=== PATIENT | female | born 1970 | race Caucasian/White ===

== ENCOUNTER 2017-12-10 20:58 | Emergency (ER) | payer OTHER ==
[2017-12-10] MEDS ORDERED: NS 0.9% 1000 ML* 1,000 ML IV ONE (21:40)
[2017-12-10] MEDS ORDERED: Metoclopramide IV* 5 MG/ML 2 ML VIAL IV SLOW PU ONE (21:41)
[2017-12-10 22:54] LABS: ABS Basophils 0 10^3/ul (0-0.2); ABS Eosinophils 0.1 10^3/ul (0-0.6); ABS Lymphocytes 2.2 10^3/ul (1.0-4.8); ABS Monocytes 0.5 10^3/ul (0-0.8); ABS Neutrophils 5.6 10^3/ul (1.5-7.7); ABS Nucleated RBC 0 10^3/ul; Eosinophil % 1.6 % (0-6); Hematocrit 41 % (35-47); Hemoglobin 14.1 g/dl (12.0-16.0); Lymphocyte % 26.2 % (25-47); Mean Corpuscular HGB Conc 34 g/dl (31-36); Mean Corpuscular Hemoglobin 30 pg (27-31); Mean Corpuscular Volume 87 fL (80-97); Mean Platelet Volume 7 um3 (7.4-10.4); Nucleated Red Blood Cells % 0; Platelet Count 418 10^3/ul (150-450); Red Blood Count 4.72 10^6/ul (4.0-5.4); Red Cell Distribution Width 13 % (10.5-15); White Blood Count 8.4 10^3/ul (3.5-10.8)
[2017-12-10 23:03] LABS: Urine Appearance Clear; Urine Blood Negative (Negative); Urine Color Yellow; Urine Ketones Negative (Negative); Urine Protein Negative (Negative); Urine Urobilinogen Negative (Negative)
[2017-12-10 23:07] LABS: INR 0.93 (0.77-1.02)
[2017-12-10 23:24] LABS: EGFR Non-African American 36.3 (>60)
[2017-12-11 00:12] VITALS: BP 108/82
[2017-12-11] MEDS ORDERED: Ketorolac INJ* 30 MG/ML 1 ML VIAL IV PUSH ONE (00:14)
--- NOTE | 2017-12-11 01:06 | ED ---
Kofi Montana Julia, scribed for Damon Marina MD on 12/10/17 at 2142 . Abdominal Pain/Female - HPI Summary HPI Summary: This patient is a 47 year old F presenting to [facility] with a chief complaint of decreased appetite right sided abdominal pain radiating up her back for the past month worsening today. The patient rates the pain 8/10 in severity. Symptoms aggravated by palpation. Patient reports jerking and twitching, weakness, and slurred speech for the past week. Patient denies vomiting. Symptoms unchanged by Tylenol use. She states she has been buying Suboxone for pain relief since she was previously prescribed Suboxone and does not currently have a primary care physician. Patient has history of IV drug use while in her early twenties. Medication list reviewed this visit. - History of Current Complaint Chief Complaint: EDAbdPain Stated Complaint: BACK PAIN Time Seen by Provider: 12/10/17 21:22 Hx Obtained From: Patient Onset/Duration: Lasting Weeks, Still Present, Worse Since - today Timing: Constant Pain Intensity: 8 Pain Scale Used: 0-10 Numeric Location: Other - right sided Radiates: Yes Radiates to: Back Alleviating Factor(s): Other: - Suboxone Associated Signs and Symptoms: Positive: Decreased Appetite, Other: - jerking and twitching, weakness, and slurred speech Allergies/Adverse Reactions: Allergies Allergy/AdvReac Type Severity Reaction Status Date / Time No Known Allergies Allergy Verified 12/10/17 21:04 PMH/Surg Hx/FS Hx/Imm Hx Cardiovascular History: Reports: Hx Hypertension EENT History: Denies: Hx Deafness Psychiatric History: Reports: Hx Depression, Hx Substance Abuse Infectious Disease History: No Infectious Disease History: Denies: Traveled Outside the [place] in Last 30 Days - Social History Hx Substance Use: Yes - 20 years ago Substance Use Type: Reports: Heroin Review of Systems Gastrointestinal: Other - decreased appetite Positive: Abdominal Pain. Negative: Vomiting Positive: Myalgia - back pain Neurological: Other - twitching Positive: Weakness, Slurred Speech All Other Systems Reviewed And Are Negative: Yes Physical Exam - Summary Physical Exam Summary: VITAL SIGNS: Reviewed. GENERAL: Patient is a well-developed and nourished female who is lying comfortable in the stretcher. Patient is not in any acute respiratory distress. HEAD AND FACE: No signs of trauma. No ecchymosis, hematomas or skull depressions. No sinus tenderness. EYES: PERRLA, EOMI x 2, No injected conjunctiva, no nystagmus. EARS: Hearing grossly intact. Ear canals and tympanic membranes are within normal limits. MOUTH: Oropharynx within normal limits. NECK: Supple, trachea is midline, no adenopathy, no JVD, no carotid bruit, no c- spine tenderness, neck with full ROM. CHEST: Symmetric, no tenderness at palpation LUNGS: Clear to auscultation bilaterally. No wheezing or crackles. CVS: Regular rate and rhythm, S1 and S2 present, no murmurs or gallops appreciated. ABDOMEN: Soft, with RUQ tenderness. No signs of distention. No rebound no guarding, and no masses palpated. Bowel sounds are normal. EXTREMITIES: FROM in all major joints, no edema, no cyanosis or clubbing. NEURO: Alert and oriented x 3. No acute neurological deficits. Speech is normal and follows commands. SKIN: Dry and warm Breast exam: left slightly larger than right with no signs of inflammation, no masses detected Triage Information Reviewed: Yes Vital Signs On Initial Exam: Initial Vitals Temp Pulse Resp BP Pulse Ox 98.3 F 71 18 96/59 99 12/10/17 21:00 12/10/17 21:00 12/10/17 21:00 12/10/17 21:00 12/10/17 21:00 Vital Signs Reviewed: Yes Diagnostics - Vital Signs Vital Signs Temp Pulse Resp BP Pulse Ox 12/10/17 21:00 98.3 F 71 18 96/59 99 - Laboratory Result Diagrams: 12/10/17 22:37 12/10/17 22:37 Lab Statement: Any lab studies that have been ordered have been reviewed, and results considered in the medical decision making process. - CT Gallbladder US CT Interpretation Completed By: Radiologist - No sonographic evidence for cholelithiasis or acute cholecystitis. No evidence of bilary obstruction Brain CT CT Interpretation Completed By: Radiologist - The brain parenchyma demonstrates normal attenuation without focal mass or mass effect. The ventricles are not enlarged. No acute intracranial hemorrhage or acute infarction. The visualized aspect of the paranasal sinuses and mastoid air cells are unremarkable. No acute fracture. ED Physician has reviewed this report. Abdominal Pain Fem Course/Dx - Course Course Of Treatment: Patient presents with ecreased appetite right sided abdominal pain radiating up her back for the past month worsening today. Patient reports jerking and twitching, weakness, and slurred speech for the past week. Lab results are unremarkable. A Brain CT is ov no acute concern. A gallbladder US is of no acute concern. Patient is given Reglan, Toradol, and IV fluids. Lab results were discussed with patient. Breast exam is of no acute concern, but patient is instructed to get a mammogram as soon as possible. - Diagnoses Provider Diagnoses: Abdominal pain Discharge - Discharge Plan Condition: Stable Disposition: HOME Prescriptions: Ibuprofen TAB* [Motrin TAB* 600 MG] 600 mg PO Q6H PRN #30 tab PRN Reason: Pain Patient Education Materials: Acute Abdominal Pain (ED) Referrals: Anselmo Cano MD [Medical Doctor] - As Soon As Possible Additional Instructions: Follow up with Dr. Cano as your primary care physician. Please get a mammogram as soon as possible. RETURN TO THE EMERGENCY DEPARTMENT FOR CHANGING OR WORSENING SYMPTOMS. The documentation as recorded by the Kofi camarillo Julia accurately reflects the service I personally performed and the decisions made by , Damon Marina MD.
--- NOTE | 2017-12-11 07:43 | RAD ---
HISTORY: Right upper quadrant to right shoulder pain COMPARISONS: None TECHNIQUE: Multiple transverse and longitudinal ultrasound images were obtained of the right upper quadrant of the abdomen using grayscale, color Doppler, and spectral Doppler imaging. FINDINGS: LIVER: The liver is normal in shape, size, contour, and echogenicity. There are no focal parenchymal masses. There is normal hepatopedal flow of the portal vein on Doppler imaging. BILIARY TREE: There is no intrahepatic or extrahepatic biliary dilatation. The common duct measures 0.4 cm. GALLBLADDER: The gallbladder is well-visualized. There is no cholelithiasis, gallbladder wall thickening, pericholecystic fluid, or sonographic Felix sign. PANCREAS: The head of the pancreas is unremarkable. The tail of the pancreas is not well visualized secondary to overlying bowel gas. RIGHT KIDNEY: The right kidney is normal in shape, size, contour, and echogenicity. There is no hydronephrosis or nephrolithiasis. The right kidney measures 9.8 x 3.9 x 4.2 cm. AORTA AND IVC: The aorta and IVC are unremarkable. Normal arterial and venous waveforms are identifiable on spectral Doppler imaging. FLUID: There are no pleural effusions. There is no free fluid within the hepatorenal recess. OTHER FINDINGS: None. IMPRESSION: NO ACUTE SONOGRAPHIC PATHOLOGY OF THE VISUALIZED PORTION OF THE ABDOMEN.
--- NOTE | 2017-12-11 07:48 | RAD ---
HISTORY: Twitching, weakness COMPARISONS: None TECHNIQUE: Multiple contiguous axial CT scans were obtained of the head without intravenous contrast. FINDINGS: HEMORRHAGE/INFARCT: There is no hemorrhage or acute infarct. MASSES/SHIFT: There is no mass or shift. EXTRA-AXIAL SPACES: There are no extra-axial fluid collections. SULCI AND VENTRICLES: The sulci and ventricles are normal in size and position for the patient's stated age. CEREBRUM: There are no focal parenchymal abnormalities. BRAINSTEM: There are no focal parenchymal abnormalities. CEREBELLUM: There are no focal parenchymal abnormalities. VESSELS: The vessels are grossly normal. PARANASAL SINUSES: The paranasal sinuses are clear. ORBITS: The orbits are unremarkable. BONES AND SOFT TISSUE: No bone or soft tissue abnormalities are noted. OTHER: None IMPRESSION: NO ACUTE INTRACRANIAL PATHOLOGY.
== END 2017-12-11 01:31 | disposition home or self-care (01) ==
LOC: ED 20:58
DX: R10.9 Unspecified abdominal pain (principal); R53.1 Weakness; R47.81 Slurred speech; Z32.02 Encounter for pregnancy test, result negative
CPT/HCPCS: 36415; 70450; 76705; 80053; 81003; 81015; 82150; 83690; 83735; 84702; 85025; 85610; 85730; 86140; 87086; 99282; J1885; J2765

== ENCOUNTER 2018-02-23 16:58 | Emergency (ER) | payer OTHER ==
[2018-02-23 19:03] LABS: Urine Appearance Clear; Urine Blood Negative (Negative); Urine Color Yellow; Urine Ketones Negative (Negative); Urine Protein Negative (Negative); Urine Specific Gravity 1.006 (1.010-1.030); Urine Urobilinogen Negative (Negative)
--- NOTE | 2018-02-23 19:09 | RAD ---
Indication: Seizure activity. Altered mental status. Hypertension. Comparison: No relevant prior exams available on the [facility] PACS for comparison. Technique: Upright AP 1838 hours Report: Elevated lung volumes. Patchy rarefaction of upper lung zone interstitial markings. No focal pulmonary lesion, compelling alveolar consolidation, pleural effusion, pneumothorax. Upper normal heart size. Unremarkable central pulmonary vasculature and mediastinal contours. IMPRESSION: Stigmata of obstructive lung disease. No acute pulmonary or cardiac process evident.
[2018-02-23] MEDS ORDERED: cloNIDine TAB* 0.1 MG ONE (19:24)
[2018-02-23] MEDS ORDERED: diPHENhydraMINE PO* 25 MG ONE (19:24)
[2018-02-23] MEDS ORDERED: diPHENhydraMINE PO* 25 MG PO ONE (19:27)
[2018-02-23] MEDS ORDERED: cloNIDine TAB* 0.1 MG PO ONE (19:27)
[2018-02-23 20:39] VITALS: BP 145/88
--- NOTE | 2018-02-23 21:07 | ED ---
Vinny Montana Rebecca, scribed for Luke Raygoza MD on 02/23/18 at 1813 . Neurological HPI - HPI Summary HPI Summary: Pt is a 48 y/o F BIBA who presents to ED s/p suspected seizure. Per nurse's triage, the pt was found outside of a library with twitching that appeared to be a seizure. The pt reports that she is unsure of exactly how long it lasted, though she expects it to have been 5-10 minutes. Last seizure was multiple years ago. States that "maybe I took a couple extra gabapentins because I thought it would help relaxing because I have been a nervous mess." Additionally notes that she has been experiencing intermittent twitching for the past 6 months, though she states they began in March. Denies CP, SOB. PMHx seizures - takes Gabapentin and Baclofen. Does not have a neurologist, has been following up with her PCP, Dr. Burgos. - History of Current Complaint Chief Complaint: EDAltMentalStatus Stated Complaint: ALT. MENTAL STATE Time Seen by Provider: 02/23/18 18:00 Hx Obtained From: Patient Onset/Duration: Resolved Current Severity: None Number of Seizures: 1 Pain Intensity: 0 Pain Scale Used: 0-10 Numeric Aggravating: Nothing Alleviating: Spontanious Resolution Associated Signs and Symptoms: Negative: Chest Pain, Shortness of Breath Related Hx: Seizure - Allergy/Home Medications Allergies/Adverse Reactions: Allergies Allergy/AdvReac Type Severity Reaction Status Date / Time No Known Allergies Allergy Verified 12/10/17 21:04 PMH/Surg Hx/FS Hx/Imm Hx Cardiovascular History: Reports: Hx Hypertension Sensory History: Denies: Hx Deafness Neurological History: Reports: Hx Seizures Psychiatric History: Reports: Hx Depression, Hx Substance Abuse Infectious Disease History: Unable to Obtain/Confirm Infectious Disease History: Denies: Traveled Outside the [place] in Last 30 Days - Family History Known Family History: Positive: Hypertension - Social History Alcohol Use: Occasionally Hx Substance Use: Yes - 20 years ago Substance Use Type: Reports: Heroin Substance Use Comment - Amount & Last Used: unk Smoking Status (MU): Heavy Every Day Tobacco Smoker Review of Systems Negative: Chest Pain Negative: Shortness Of Breath Neurological: Other - s/p susepcted seizure, "twitching" All Other Systems Reviewed And Are Negative: Yes Physical Exam - Summary Physical Exam Summary: VITAL SIGNS: Reviewed. GENERAL: ~Patient is a well-developed and nourished female who is lying comfortable in the stretcher. ~Patient is not in any acute respiratory distress. HEAD AND FACE: No signs of trauma. ~No ecchymosis, hematomas or skull depressions. No sinus tenderness. EYES: PERRLA, EOMI x 2, No injected conjunctiva, no nystagmus. EARS: Hearing grossly intact. Ear canals and tympanic membranes are within normal limits. MOUTH: Oropharynx within normal limits. NECK: Supple, trachea is midline, no adenopathy, no JVD, no carotid bruit, no c- spine tenderness, neck with full ROM. CHEST: Symmetric, no tenderness at palpation LUNGS: Clear to auscultation bilaterally. No wheezing or crackles. CVS: Regular rate and rhythm, S1 and S2 present, no murmurs or gallops appreciated. ABDOMEN: Soft, non-tender. No signs of distention. No rebound no guarding, and no masses palpated. Bowel sounds are normal. EXTREMITIES: FROM in all major joints, no edema, no cyanosis or clubbing. NEURO: Alert and oriented x 3. No acute neurological deficits. Speech is normal and follows commands. SKIN: Dry and warm Triage Information Reviewed: Yes Vital Signs On Initial Exam: Initial Vitals Pulse BP Pulse Ox 120 180/124 92 02/23/18 16:58 02/23/18 16:58 02/23/18 16:58 Vital Signs Reviewed: Yes Diagnostics - Vital Signs Vital Signs Temp Pulse Resp BP Pulse Ox 02/23/18 17:21 120 93 02/23/18 17:01 100.7 F 128 18 180/124 97 02/23/18 16:58 120 180/124 92 - Laboratory Lab Results: Lab Results 02/23/18 02/23/18 Range/Units 18:53 18:53 Urine Color Yellow Urine Appearance Clear Urine pH 5.0 (5-9) Ur Specific [place] 1.006 L (1.010-1.030) Urine Protein Negative (Negative) Urine Ketones Negative (Negative) Urine Blood Negative (Negative) Urine Nitrate Negative (Negative) Urine Bilirubin Negative (Negative) Urine Urobilinogen Negative (Negative) Ur Leukocyte Esterase Trace A (Negative) Urine WBC (Auto) Trace(0-5/hpf) (Absent) Urine RBC (Auto) Absent (Absent) Ur Squamous Epith Cells Present A (Absent) Urine Bacteria Absent (Absent) Hyaline Casts Present A (Absent) Urine Glucose Negative (Negative) Urine Ascorbic Acid * A (Negative) Urine Opiates Screen None detected (None Detect) Ur Barbiturates Screen None detected (None Detect) Ur Phencyclidine Scrn None detected (None Detect) Ur Amphetamines Screen Presumptive positive A (None Detect) U Benzodiazepines Scrn None detected (None Detect) Urine Cocaine Screen None detected (None Detect) U Cannabinoids Screen None detected (None Detect) Lab Statement: Any lab studies that have been ordered have been reviewed, and results considered in the medical decision making process. - Radiology CXR Xray Interpretation: No Acute Changes - Stigmata of obstructive lung disease. No acute pulmonary or cardiac process evident. ED physician reviewed this radiology report. Radiology Interpretation Completed By: Radiologist - EKG 970 Cardiac Rate: Tachycardia - 106 bpm EKG Rhythm: Sinus Tachycardia EKG Interpretation: No ST elevations Re-Evaluation - Re-Evaluation First Eval Re-Evaluation Time: 20:29 Comment: A&Ox3. Discussed results. Pt results furhter workup. She will be signing out AMA. Course/Dx - Course Assessment/Plan: This patient is a 48-year-old female who presents to the emergency room with a chief complaint of having altered mental status. The patient reports that she thinks she had a seizure. However, the patient is not sure. The patient at this time she is alert and oriented 3. Anterior note also is reported that the patient may have taken Spice. Urinalysis negative for UTI. Patient declined blood work. The patient is alert and oriented 3. Chest x-ray impression: Stigmata for COPD. No acute pulmonary process. The patient continues to decline blood work. She declined a head CT, she declined any further workup. The patient is alert and oriented 3 and she seems to be back to her normal state of mind. The patient is ambulating in the ER with no difficulty ambulating. She is hemodynamically stable. Patient agreed to get clonidine for the [place] hypertension. The platelet patient is much improved. I extensively discussed with the patient the benefits and risk of leaving AMA. I also discussed the alternatives to leaving AMA, however, the patient still insist to leave the hospital AMA.. The primary nurse and the charge nurse also strongly recommended that the patient should not leave AMA. Patient understands the risk of leaving AMA, which includes but is not restricted to . Patient is Alert and oriented times three and patient verbalizes understanding. Patient has full capacity and is cognitively intact. Patient signed the AMA form. Patient was also advised to return to ED if he changes his mind or if the symptoms worsen or other symptoms appear. Patient understands and agrees. - Diagnoses Provider Diagnoses: Seizure, Uncontrolled hypertension Discharge - Sign-Out/Discharge Documenting (check all that apply): Discharge/Admit/Transfer - AMA - Discharge Plan Condition: Stable Disposition: AGAINST MEDICAL ADVICE Referrals: Robby Burgos MD [Primary Care Provider] - - Billing Disposition and Condition Condition: STABLE Disposition: AMA The documentation as recorded by the Vinny camarillo Rebecca accurately reflects the service I personally performed and the decisions made by , Luke Raygoza MD.
== END 2018-02-23 20:37 | disposition left against medical advice (07) ==
LOC: ED 16:58
DX: R56.9 Unspecified convulsions (principal); I10 Essential (primary) hypertension; F17.210 Nicotine dependence, cigarettes, uncomplicated; Z53.21 Procedure and treatment not carried out due to patient leaving prior to being seen by health care provider
CPT/HCPCS: 36415; 71045; 80307; 81003; 81015; 87086; 93005; 99283; A9270-GY

== ENCOUNTER 2018-02-24 15:08 | Emergency (ER) | payer OTHER ==
--- NOTE | 2018-02-24 16:43 | RAD ---
HISTORY: Fall, pain, broken nose COMPARISONS: None VIEWS: 3, Fabian views of the face, bilateral coned down lateral views of the nasal bones FINDINGS: BONE DENSITY: Normal. BONES: There is no displaced nasal bone fracture. The orbital rims are intact. The zygomatic arches are intact. JOINTS: There is no arthropathy. ALIGNMENT: There is no dislocation. SOFT TISSUES: Unremarkable. OTHER FINDINGS: None. IMPRESSION: NO DISPLACED NASAL BONE FRACTURE.. IF SYMPTOMS PERSIST, RECOMMEND REPEAT IMAGING.
[2018-02-24 17:31] VITALS: BP 00/0
--- NOTE | 2018-02-24 17:35 | ED ---
Mitul Montana Stephanie, scribed for Leo Chowdary on 02/24/18 at 1557 . Throat Pain/Nasal Congestion - HPI Summary HPI Summary: The pt is a 48 y/o F presenting to the ED with c/o nose pain that began at 20: 00 on 02/23/18 s/o fall. The pt states she was running in the dark when she tripped and fell on her face and hit her nose. She denies LOC. She states she heard a crunching sound from her nose when she fell. - History of Current Complaint Chief Complaint: EDFacialInjury Time Seen by Provider: 02/24/18 15:39 Hx Obtained From: Patient Onset/Duration: Sudden Onset, Still Present Severity: Moderate - Allergies/Home Medications Allergies/Adverse Reactions: Allergies Allergy/AdvReac Type Severity Reaction Status Date / Time No Known Allergies Allergy Verified 12/10/17 21:04 Home Medications: Home Medications BuPROPion XL* [Bupropion XL*] 300 mg PO DAILY 02/24/18 [History Confirmed ] Buprenorphine/Naloxone SL TAB* [Suboxone 8-2 mg SL TAB*] 1 tab.sl SL BID [History Confirmed 02/24/18] Gabapentin CAP(*) [Neurontin 300 CAP(*)] 300 mg PO .5ID 02/24/18 [History Confirmed 02/24/18] Lisinopril/HCTZ 10/12.5(NF) [Zestoretic 10/12.5(NF)] 1 tab PO DAILY 02/24/18 [ History Confirmed 02/24/18] Multivitamins/Minerals TAB* [Theragran/minerals TAB*] 1 tab PO DAILY 02/24/18 [ History Confirmed 02/24/18] cloNIDine TAB* [Catapres 0.1 MG TAB*] 0.2 mg PO TID 02/24/18 [History Confirmed 02/24/18] hydrOXYzine HCL TAB* [Atarax TAB 50 MG *] 50 mg PO TID 02/24/18 [History Confirmed 02/24/18] PMH/Surg Hx/FS Hx/Imm Hx Cardiovascular History: Reports: Hx Hypertension Sensory History: Denies: Hx Deafness Neurological History: Reports: Hx Seizures Psychiatric History: Reports: Hx Depression, Hx Substance Abuse - Surgical History Surgery Procedure, Year, and Place: NONE Infectious Disease History: No Infectious Disease History: Denies: Traveled Outside the [place] in Last 30 Days - Family History Known Family History: Positive: Hypertension Negative: Renal Disease - Social History Occupation: Unemployed Lives: With Family Alcohol Use: Occasionally Hx Substance Use: Yes - 20 years ago Substance Use Type: Reports: Heroin Substance Use Comment - Amount & Last Used: unk Hx Tobacco Use: Yes Smoking Status (MU): Heavy Every Day Tobacco Smoker Have You Smoked in the Last Year: Yes Review of Systems Negative: Fever Positive: Other - nose pain Neurological: Negative - LOC All Other Systems Reviewed And Are Negative: Yes Physical Exam - Summary Physical Exam Summary: Appearance: Well appearing, no pain distress Skin: warm, dry, reflects adequate perfusion Head/face: tenderness over nose, mild swelling over nose Eyes: EOMI, MORENA ENT: normal Neck: supple, non-tender Respiratory: CTA, breath sounds present Cardiovascular: RRR, pulses symmetrical Abdomen: non-tender, soft Bowel: present Musculoskeletal: normal, strength/ROM intact Neuro: normal, sensory motor intact, A&Ox3 Triage Information Reviewed: Yes Vital Signs On Initial Exam: Initial Vitals Temp Pulse Resp BP Pulse Ox 97 F 84 15 105/61 96 02/24/18 15:12 02/24/18 15:12 02/24/18 15:12 02/24/18 15:12 02/24/18 15:12 Vital Signs Reviewed: Yes Diagnostics - Vital Signs Vital Signs Temp Pulse Resp BP Pulse Ox 02/24/18 15:33 99.1 F 100 20 154/85 98 02/24/18 15:12 97 F 84 15 105/61 96 - Laboratory Lab Statement: Any lab studies that have been ordered have been reviewed, and results considered in the medical decision making process. - Radiology Nasal Bones XRay Xray Interpretation: No Acute Changes Radiology Interpretation Completed By: Radiologist - NO DISPLACED NASAL BONE FRACTURE.. IF SYMPTOMS PERSIST, RECOMMEND REPEAT IMAGING. ED physician has reviewed this report. Re-Evaluation - Re-Evaluation First Eval Re-Evaluation Time: 17:28 Change: Unchanged - ED physician discussed normal xray results and plan of discharge and the pt agrees to discharge. EENT Course/Dx - Course Course Of Treatment: The pt is a 48 y/o F presenting to the ED with c/o nose pain that began at 20:00 on 02/23/18 s/p fall. Nasal bone xray is normal. - Differential Diagnoses Differential Diagnoses: Contusion, Fracture - Diagnoses Provider Diagnoses: Contusion, nose Discharge - Sign-Out/Discharge Documenting (check all that apply): Discharge/Admit/Transfer - Discharge - Discharge Plan Condition: Stable Disposition: HOME Patient Education Materials: Nasal Contusion (ED) Referrals: Robby Burgos MD [Primary Care Provider] - 3 Days Additional Instructions: Return to the ED for any new or worsening symptoms. - Billing Disposition and Condition Condition: STABLE Disposition: HOME The documentation as recorded by the Mitul camarillo Stephanie accurately reflects the service I personally performed and the decisions made by Epi castillo Emmanuel.
== END 2018-02-24 17:31 | disposition home or self-care (01) ==
LOC: ED 15:08
DX: S00.33XA Contusion of nose, initial encounter (principal); W01.0XXA Fall on same level from slipping, tripping and stumbling without subsequent striking against object, initial encounter; Y93.02 Activity, running; Y92.9 Unspecified place or not applicable; I10 Essential (primary) hypertension; R56.9 Unspecified convulsions; F32.9 Major depressive disorder, single episode, unspecified; F17.200 Nicotine dependence, unspecified, uncomplicated
CPT/HCPCS: 70160; 99282

== ENCOUNTER 2018-06-21 17:35 | Emergency (ER) | payer OTHER ==
--- OUTSIDE RECORDS SUMMARY | 2018-06-21 17:53 | XMS REPORT ---
:1970 External Reference #:[id number] Author Organization [facility] Address [address] [place] [address] [place] [address] Phone [phone] Care Team Providers Name Role Phone Robby Burgos MD Primary Care Physician Unavailable Payers Type Date Identification Numbers Payment Provider Subscriber Commercial Effective: Policy Number: [id number] Shahram Jaffe 2017 Group Number: [id number] PayID: [id number] [place] [address] Problems Date Description Provider Status Onset: 01/22/2018 Opioid abuse Robby Burgos M.D.,FACP Active Onset: 01/22/2018 Low back pain Robby Burgos M.D.,FACP Active Onset: 01/22/2018 Mixed hyperlipidemia Robby Burgos M.D.,FACP Active Onset: 01/22/2018 Essential hypertension Robby Burgos M.D.,FACP Active Onset: 01/22/2018 Premature menopause Robby Burgos M.D.,FACP Active Note: age 42 Onset: 02/21/2018 Chronic kidney disease stage 3 Robby Burgos M.D., FACP Active Onset: 02/21/2018 Tobacco user Robby Burgos M.D.,FACP Active Family History Date Family Member(s) Problem(s) Comments Onset: (age 62 Father Coronary Artery Disease Years) (CAD) Father due to Cancer () - kidney Father Kidney Cancer Mother Hypertension Siblings 1 First Brother Hypertension Social History Type Date Description Comments Lives With Alone Cigarette Use current cigarette smoker ETOH Use 01/22/2018 Denies alcohol use former abuse, quit 7 yrs ago Smoking Light tobacco smoker (10 or fewer cigarettes/day) Recreational Drug Use Formerly addicted to IV drugs Exercise Type/Frequency Exercises regularly Allergies, Adverse Reactions, Alerts Date Description Reaction Status Severity Comments 01/22/2018 NKDA active Medications Medication Date Status Form Strength Qnty SIG Indications Ordering Provider Hydroxyzine HCL 05/30/ Active Tablets 50mg 120tab 1 tab Robby 2017 s every 6-8 D. Loretta, hours as M.DAntoinette,FACP needed for anxiety, may take 2 tabs at hs Suboxone 02/27/ Active Film 8-2mg 28unit 1 strip Robby 2017 s sl twice Jules Burgos, day M.DAntoinette,FACP Amlodipine 02/21/ Active Tablets 2.5mg 30tabs 1 by Robby Besylate 2018 mouth Jules Burgos, every day M.D.,FACP Nicoderm CQ 01/22/ Active Patches 14mg/24HR 28unit 1 topical Payam 2017 24HR s every day Arti Moon Nicotine Mini 01/22/ Active Lozenges 4mg 135uni 1 orally 2017 ts every 2 Pachikara, hours as M.D. needed Baclofen 01/22/ Active Tablets 10mg 60tabs Take 10/03 Robby 2017 To 1 Jules Burgos, Tablet By Arti,JACEKP Mouth Every 8 Hours as Needed For Muscle Spasms Clonidine HCL / Active Tablets 0.2mg 90tabs 1 by Robby 0000 mouth Jules Burgos, three M.DAntoinette,FACP times a day Atorvastatin / Active Tablets 20mg 90tabs take 1 Robby Calcium 0000 tablet at Jules Burgos, bedtime Arti,FACP Multi For Her / Active Capsules once a Unknown 0000 day otc Gabapentin / Active Capsules 300mg 150cap Take 1 Payam s Cap 5 Pachikara, Times A M.D. Day Needed Bupropion HCL / Active Tablets ER 300mg 30tabs Take 1 Robby ER (XL) 0000 24HR Tablet By Jules Burgos, Mouth M.Jules,FACP Every Day Suboxone 02/16/ Hx Film 12-3mg 7units 1/2 strip Robby 2018 - sl twice D. Loretta, 02/27/ a day M.D.,[facility] 2018 Lisinopril-Hydr 01/23/ Hx Tablets 20-12.5mg 30tabs 1 by Robby varmaothiazide 2018 - mouth D. Loretta, 02/21/ every day M.D.,[facility] 2018 Naproxen 01/22/ Hx Tablets 500mg 60tabs 1 by Robby 2018 - mouth D. Loretta, 05/31/ twice a M.D.,[facility] 2018 day as needed Lisinopril-Hydr / Hx Tablets 20-25mg 1 by Heather ochlorothiazide 0000 - mouth day 2017 Hydroxyzine HCL / Hx Tablets 25mg 90tabs 1 by Robby 0000 - mouth 3x D. Loretta, 05/30/ daily M.D.,[facility] 2018 Lisinopril-Hydr / Hx Tablets 10-12.5mg 30tabs 1 by Robby torreslorothiazide 0000 - mouth D. Loretta, 01/23/ every day M.D.,[facility] 2018 Suboxone / Hx Film 8-2mg 28unit 1 strip Robby 0000 - s sl twice D. Loretta, 02/16/ day M.D.,[facility] 2018 Vital Signs Date Vital Result Comment 05/31/2018 Height 61.25 inches 5'1.25" Weight 111.00 lb Heart Rate 65 /min BP Systolic Sitting 110 mmHg BP Diastolic Sitting 70 mmHg Body Temperature 98.1 F O2 % BldC Oximetry 91 % BMI (Body Mass Index) 20.8 kg/m2 05/29/2018 Height 61.25 inches 5'1.25" Weight 115.00 lb Heart Rate 87 /min BP Systolic 118 mmHg BP Diastolic 70 mmHg O2 % BldC Oximetry 98 % BMI (Body Mass Index) 21.5 kg/m2 Last Menstrual Period [id number] 05/01/2018 Height 61.25 inches 5'1.25" Weight 116.25 lb Heart Rate 71 /min BP Systolic 98 mmHg BP Diastolic 59 mmHg Body Temperature 97.9 F O2 % BldC Oximetry 100 % BMI (Body Mass Index) 21.8 kg/m2 02/21/2018 Height 61.25 inches 5'1.25" Weight 115.00 lb Heart Rate 90 /min BP Systolic Sitting 100 mmHg BP Diastolic Sitting 66 mmHg Body Temperature 97.7 F O2 % BldC Oximetry 97 % BMI (Body Mass Index) 21.5 kg/m2 01/22/2018 Height 61.25 inches 5'1.25" Weight 118.00 lb Heart Rate 68 /min BP Systolic Sitting 114 mmHg BP Diastolic Sitting 60 mmHg Body Temperature 98.0 F O2 % BldC Oximetry 98 % BMI (Body Mass Index) 22.1 kg/m2 Results Test Date Test Result H/L Range Note Basic Metabolic Panel 05/31/2018 Sodium 140 mmol/L 135-145 Potassium 3.8 mmol/L 3.5-5.0 Chloride 104 mmol/L 101-111 Co2 Carbon Dioxide 31 mmol/L 22-32 Anion Gap 5 mmol/L 2-11 Glucose 95 mg/dL 70-100 Blood Urea Nitrogen 14 mg/dL 6-24 Creatinine 1.16 mg/dL High 0.51-0.95 BUN/Creatinine Ratio 12.1 8-20 Calcium 9.4 mg/dL 8.6-10.3 Egfr Non- 50.1 >60 Egfr 60.6 >60 1 Laboratory test finding 05/31/2018 Hepatitis C Antibody <pending> Iron & Iron Binding Capacity 05/31/2018 Iron 79 g/dL 50-212 Unsaturated Iron Binding 295 g/dL Total Iron Binding Capacity 374 g/dL 250-450 Transferrin 267 mg/dL 203-362 % Iron Saturation 21 % 15-55 Laboratory test finding 05/31/2018 FSH (Follicle Stim Hormone) 116.8 mIU/mL 2 LH (Lutenizing Hormone) 16.3 mcIU/mL 3 Laboratory test finding 05/29/2018 Cytology SEE RESULT BELOW 4, 5 Drug Abuse 20 Urine 05/01/2018 Urine Amphetamine Negative ng/mL 6, 7 Urine Barbiturates Negative ng/mL 6, 8 Urine Benzodiazepines Negative ng/mL 6, 9 Urine Cocaine Negative ng/mL 6, 10 Urine Phencyclidine Negative ng/mL Cutoff: 25 6 Urine Tetrahydrocannabinol Presumptive Posi <SEE NOTE> ng/mL Cutoff: 50 6 , 11 Creatinine, Urine 129.7 mg/dL 6 Specific [place] 1.011 6 pH 5.2 6 Oxidants Negative 6, 12 Adulterants Comment Normal 6 Codeine, Ur Not Detected ng/mL Cutoff: 25 6, 13 Lsaaxiq-0-ddss-glucuronide, Ur Not Detected ng/mL 6, 14 Morphine, Ur Not Detected ng/mL Cutoff: 25 6, 15 Xfpejmgo-6-wmrr-glucuronide, U Not Detected ng/mL 6, 16 6-monoacetylmorphine, Ur Not Detected ng/mL Cutoff: 25 6, 17 Hydrocodone, Ur Not Detected ng/mL Cutoff: 25 6, 18 Norhydrocodone, Ur Not Detected ng/mL Cutoff: 25 6, 19 Dihydrocodeine, Ur Not Detected ng/mL Cutoff: 25 6, 20 Hydromorphone, Ur Not Detected ng/mL Cutoff: 25 6, 21 Lsqvltzozwrur9tryejrjmdsifnrp Not Detected ng/mL 6, 22 Oxycodone, Ur Not Detected ng/mL Cutoff: 25 6, 23 Noroxycodone, Ur Not Detected ng/mL Cutoff: 25 6, 24 Oxymorphone, Ur Not Detected ng/mL Cutoff: 25 6, 25 Bbustobspam-8-iiqg-glucuronide Not Detected ng/mL 6, 26 Noroxymorphone, Ur Not Detected ng/mL Cutoff: 25 6, 27 Fentanyl, Ur Not Detected ng/mL Cutoff: 2 6, 28 Norfentanyl, Ur Not Detected ng/mL Cutoff: 2 6, 29 Meperidine, Ur Not Detected ng/mL Cutoff: 25 6, 30 Normeperidine, Ur Not Detected ng/mL Cutoff: 25 6, 31 Naloxone, Ur Not Detected ng/mL Cutoff: 25 6, 32 Ybpokcfj-7-oqxz-glucuronide, U Present ng/mL 6, 33 Methadone, Ur Not Detected ng/mL Cutoff: 25 6, 34 Eddp, Ur Not Detected ng/mL Cutoff: 25 6, 35 Propoxyphene, Ur Not Detected ng/mL Cutoff: 25 6, 36 Norpropoxyphene, Ur Not Detected ng/mL Cutoff: 25 6, 37 Tramadol, Ur Not Detected ng/mL Cutoff: 25 6, 38 O-desmethyltramadol, Ur Not Detected ng/mL Cutoff: 25 6, 39 Tapentadol, Ur Not Detected ng/mL Cutoff: 25 6, 40 N-desmethyltapentadol, Ur Not Detected ng/mL Cutoff: 50 6, 41 Qhdrhkybmm-ucvw-mieceuwgjcr, U Not Detected ng/mL 6, 42 Buprenorphine, Ur Present ng/mL Cutoff: 5 6, 43 Norbuprenorphine, Ur Present ng/mL Cutoff: 5 6, 44 Norbuprenorphine glucuronide Present ng/mL Cutoff: 20 6, 45 Opioid Interpretation See Comment 6, 46 THC Confirmation Urine 05/01/2018 Urine Carboxy THC Confirm >500.0 ng/mL 6, 47 Urine THC Interpretation Positive. 6, 48 Urine Culture And 02/23/2018 Urine Culture SEE RESULT BELOW 49 Sensitivities Urine Drug SCR ED & 02/23/2018 Amphetamine Ur Presumptive Posi None Detect 50 Pain Clinic Screen <SEE NOTE> Barbiturates Urine Screen None Detected None Detect Benzodiazepine Urine Screen None Detected None Detect Urine Cannabinoids Screen None Detected None Detect Urine Cocaine Screen None Detected None Detect Urine Opiates Screen None Detected None Detect Urine Phencyclidine Screen None Detected None Detect 51 Urinalysis Profile 02/23/2018 Urine Color Yellow Urine Appearance Clear Urine Specific [place] 1.006 Low 1.010-1.030 Urine pH 5.0 5-9 Urine Urobilinogen Negative Negative Urine Ketones Negative Negative Urine Protein Negative Negative Urine Leukocytes Trace Negative Urine Blood Negative Negative * * Negative 52 Urine Nitrite Negative Negative Urine Bilirubin Negative Negative Urine Glucose Negative Negative Urine White Blood Cell Trace(0-5/hpf) Absent Urine Red Blood Cell Absent Absent Urine Bacteria Absent Absent Urine Squamous Epithelial Cell Present Absent Urine Hyaline Casts Present Absent Comp Metabolic Panel 02/09/2018 Sodium 137 mmol/L Low 139-145 Potassium 3.8 mmol/L 3.5-5.0 Chloride 98 mmol/L Low 101-111 Co2 Carbon Dioxide 31 mmol/L 22-32 Anion Gap 8 mmol/L 2-11 Glucose 114 mg/dL High 70-100 Blood Urea Nitrogen 23 mg/dL 6-24 Creatinine 2.39 mg/dL High 0.51-0.95 BUN/Creatinine Ratio 9.6 8-20 Calcium 9.8 mg/dL 8.6-10.3 Total Protein 6.5 g/dL 6.4-8.9 Albumin 4.0 g/dL 3.2-5.2 Globulin 2.5 g/dL 2-4 Albumin/Globulin Ratio 1.6 1-3 Total Bilirubin 0.50 mg/dL 0.2-1.0 Alkaline Phosphatase 103 U/L 34-104 Alt 13 U/L 7-52 Ast 19 U/L 13-39 Egfr Non- 21.7 >60 Egfr 28.0 >60 53 Laboratory test finding 02/09/2018 TSH (Thyroid Stim 2.99 mcIU/mL 0.34- 5.60 54 Horm) Vitamin B12 669 pg/mL 180-914 55 FSH And LH 02/09/2018 FSH (Follicle Stim Hormone) 76.1 mIU/mL 56 LH (Lutenizing Hormone) 9.8 mcIU/mL 57 Laboratory test finding 02/09/2018 Vitamin D Total 25(Oh) 41.7 ng/mL 20- 50 58 Lipid Profile (Trig/Chol/HDL) 02/09/2018 Triglycerides 205 mg/dL 59 Cholesterol 203 mg/dL 60 HDL Cholesterol 36.4 mg/dL 61 LDL Cholesterol 126 mg/dL 62 Drug Abuse 20 Urine 01/22/2018 Urine Amphetamine Negative ng/mL 63 Urine Barbiturates Negative ng/mL 64 Urine Benzodiazepines Negative ng/mL 65 Urine Cocaine Negative ng/mL 66 Urine Phencyclidine Negative ng/mL Cutoff: 25 Urine Tetrahydrocannabinol Negative ng/mL Cutoff: 50 67 Creatinine, Urine 72.3 mg/dL Specific [place] 1.008 pH 7.1 Oxidants Negative 68 Adulterants Comment Normal Codeine, Ur Not Detected ng/mL Cutoff: 25 69 Khxlgzk-5-zfod-glucuronide, Ur Not Detected ng/mL 70 Morphine, Ur Not Detected ng/mL Cutoff: 25 71 Mlszrkea-1-oerl-glucuronide, U Not Detected ng/mL 72 6-monoacetylmorphine, Ur Not Detected ng/mL Cutoff: 25 73 Hydrocodone, Ur Not Detected ng/mL Cutoff: 25 74 Norhydrocodone, Ur Not Detected ng/mL Cutoff: 25 75 Dihydrocodeine, Ur Not Detected ng/mL Cutoff: 25 76 Hydromorphone, Ur Not Detected ng/mL Cutoff: 25 77 Rbzknrxazewkh8rfrcdpfoqcdqqww Not Detected ng/mL 78 Oxycodone, Ur Not Detected ng/mL Cutoff: 25 79 Noroxycodone, Ur Not Detected ng/mL Cutoff: 25 80 Oxymorphone, Ur Not Detected ng/mL Cutoff: 25 81 Vxepwuhaxvd-3-nanw-glucuronide Not Detected ng/mL 82 Noroxymorphone, Ur Present ng/mL Cutoff: 25 83 Fentanyl, Ur Not Detected ng/mL Cutoff: 2 84 Norfentanyl, Ur Not Detected ng/mL Cutoff: 2 85 Meperidine, Ur Not Detected ng/mL Cutoff: 25 86 Normeperidine, Ur Not Detected ng/mL Cutoff: 25 87 Naloxone, Ur Not Detected ng/mL Cutoff: 25 88 Wwzghkim-8-pigh-glucuronide, U Present ng/mL 89 Methadone, Ur Not Detected ng/mL Cutoff: 25 90 Eddp, Ur Not Detected ng/mL Cutoff: 25 91 Propoxyphene, Ur Not Detected ng/mL Cutoff: 25 92 Norpropoxyphene, Ur Not Detected ng/mL Cutoff: 25 93 Tramadol, Ur Not Detected ng/mL Cutoff: 25 94 O-desmethyltramadol, Ur Not Detected ng/mL Cutoff: 25 95 Tapentadol, Ur Not Detected ng/mL Cutoff: 25 96 N-desmethyltapentadol, Ur Not Detected ng/mL Cutoff: 50 97 Komteydotm-lbhr-mhghbomqzhi, U Not Detected ng/mL 98 Buprenorphine, Ur Present ng/mL Cutoff: 5 99 Norbuprenorphine, Ur Present ng/mL Cutoff: 5 100 Norbuprenorphine glucuronide Present ng/mL Cutoff: 20 101 Opioid Interpretation See Comment 102 1 Because ethnic data is not always readily available, this report includes an eGFR for both -Americans and non- Americans. The National Kidney Disease Education Program (NKDEP) does not endorse the use of the MDRD equation for patients that are not between the ages of 18 and 70, are , have extremes of body size, muscle mass, or nutritional status, or are non- or non-. According to the National Kidney Foundation, irrespective of diagnosis, the stage of the disease is based on the level of kidney function: Stage Description GFR(mL/min/1.73 m(2)) 1 Kidney damage with normal or decreased GFR 90 2 Kidney damage with mild decrease in GFR 60-89 3 Moderate decrease in GFR 30-59 4 Severe decrease in GFR 15-29 5 Kidney failure <15 (or dialysis) 2 Normally menstruating females - Follicular phase 3 - 9 - Mid-cycle peak 4 - 23 - Luteal phase 1 - 6 Postmenopausal females 16 - 114 3 Normally menstruating females - Follicular Phase 1 - 18 - Mid-Cycle Peak 24 - 105 - Luteal Phase 0.6 - 20 Postmenopausal females 15 - 62 4 [id number] SEE RESULT BELOW Name: DHAVAL JAFFE : [address]: Eric Zaidi MD Acct: [id number] Unit: [id number] AGE: 48 Location: [facility] Re05/29/18 SEX: F Status: REG REF SPEC: [id number] NIC: 05/29/[address]: Eric Zaidi MD REQ: [id number] RECD: 05/29/18 STATUS: SOUT _ ORDERED: TP IMAGE ANALYS, HPV/Thin Prep COMMENTS: [id number] Negative for Intraepithelial lesion or Malignancy Date Time Test Result Flag (u) Normal Range 05/29/18 1528 @ HPV RNA Negative Negative @ @ The high-risk HPV types detected by the assay include: 16, @ 18, 31, 33, 35, 39, 45, 51, 52, 56, 58, 59, 66, and 68. A. Ectocervical/Endocervical Specimen Adequacy: Satisfactory of evaluation Transformation zone component not identified Patient Information: HPV: High risk HPV RNA testing regardless of pap results. Actual Specimen Date: 05/29/18 Last Menstrual Date: 10/02/13 ?: N Post Menopausal?: Y Hysterectomy?: N Signed by and Reported on: ELIA Barillas(ASCP) 150 This Pap test was evaluated with the assistance of the [employer] Test Imaging System. Due to cytologic findings at the branch coordinator microscope, comprehensive manual rescreening by a Digital Communications Manager may be required. The Pap Smear is a screening test designed to aid in the detection of premalignant and malignant conditions of the uterine cervix. It is not a diagnostic procedure and should not be used as the sole means of detecting cervical cancer. Both false- positive and false- negative reports do occur. Depending on your risk status, a Pap smear should be obtained and evaluated every 1-3 years. END OF REPORT DEPARTMENT OF PATHOLOGY, [address] [place] [address] Drake Wiggins M.D. Director [place] # [id number] REFERENCE VALUE Cutoff: 500 8 REFERENCE VALUE Cutoff: 200 9 REFERENCE VALUE Cutoff: 100 10 REFERENCE VALUE Cutoff: 150 11 Presumptive Positive Drug confirmation to follow. Presumptive Positive means that the screening method is positive, but the test needs to be run by a confirmatory method before being finalized. ADDITIONAL INFORMATION This report is intended for use in clinical monitoring or management of patients. It is not intended for use in employment-related testing. 12 REFERENCE VALUE Cutoff: 200 mg/L 13 Tylenol 3 14 Metabolite of codeine REFERENCE VALUE Cutoff: 100 15 Latasha Hawkins MS Contin; Also a minor metabolite (10%) of codeine and can be seen in low concentrations (<2,000 ng/mL) with poppy seed ingestion. 16 Metabolite of morphine REFERENCE VALUE Cutoff: 100 17 Metabolite of heroin 18 Lortab, [employer], Vicodin; Also a very minor metabolite of codeine and impurity (<1%) of oxycodone. 19 Metabolite of hydrocodone 20 Metabolite of hydrocodone 21 Dilaudid, Exalgo; Also a metabolite of hydrocodone and a minor (<5%) metabolite of morphine. 22 Metabolite of hydromorphone REFERENCE VALUE Cutoff: 100 23 Endocet, Percocet, Oxycontin 24 Metabolite of oxycodone 25 Numorphan, Opana; Also a metabolite of oxycodone. 26 Metabolite of oxymorphone REFERENCE VALUE Cutoff: 100 27 Metabolite of oxymorphone 28 Actiq, Duragesic, Fentora 29 Metabolite of fentanyl 30 Demerol 31 Metabolite of meperidine 32 Narcan 33 Metabolite of naloxone REFERENCE VALUE Cutoff: 100 34 Dolophine 35 Metabolite of methadone 36 Darvon, Darvocet 37 Metabolite of propoxyphene 38 Tradol, Ultram, Ultracet 39 Metabolite of tramadol 40 Nucynta 41 Metabolite of tapentadol 42 Metabolite of tapentadol REFERENCE VALUE Cutoff: 100 43 Buprenex, Suboxone 44 Metabolite of buprenorphine 45 Metabolite of buprenorphine 46 Test detected the presence of buprenorphine and its metabolites (norbuprenorphine and norbuprenorphine glucuronide) along with naloxone metabolite (acmhterc-0-vpqi-glucuronide). Suspect use of buprenorphine with naloxone (e.g. Suboxone) within the past three days. ADDITIONAL INFORMATION This test was developed and its performance characteristics determined by [facility] in a manner consistent with CLIA requirements. This test has not been cleared or approved by the U.S. Food and Drug Administration. Test Performed by: [facility] - [address] [address] 47 REFERENCE VALUE Cutoff: 3.0 48 ADDITIONAL INFORMATION This report is intended for use in clinical monitoring and management of patients. It is not intended for use in employment-related testing. This test was developed and its performance characteristics determined by [facility] in a manner consistent with CLIA requirements. This test has not been cleared or approved by the U.S. Food and Drug Administration. Test Performed by: [facility] - [address] [id number] 49 SEE RESULT BELOW Name: DHAVAL JAFFE : [address]: Luke Raygoza MD Acct: [id number] Unit: [id number] AGE: 48 Location: ED Re02/23/18 SEX: F Status: DEP ER SPEC: [id number] NIC: 02/23/18-057[facility] DR: Luke Raygoza MD REQ: [id number] RECD: 02/23/18 STATUS: JU RODAS DR: Robby Burgos MD _ SOURCE: URINE [facility]: ORDERED: Urine Culture Procedure Result Reported Site Urine Culture Final 02/24/18- 1605 ML No Growth (<1,000 CFU/mL) * ML - Main Lab . END OF REPORT DEPARTMENT OF PATHOLOGY, [address] [place] [address] Drake Wiggins M.D. Director [facility] # [id number] Presumptive Positive Presumptive positive results are unconfirmed. 51 The urine specimen was tested at the listed cutoffs: Drug class test level (ng/mL) Amphetamines 500 Barbiturates 200 Benzodiazepine metabolites 200 Cocaine metabolites 150 Cannabinoids 50 Opiates 300 Pcp 25 Specimen was received without chain of custody. Results should be used for medical purposes only. 52 *Ascorbic acid is present which may interfere with detection of blood. 53 Because ethnic data is not always readily available, this report includes an eGFR for both -Americans and non- Americans. The National Kidney Disease Education Program (NKDEP) does not endorse the use of the MDRD equation for patients that are not between the ages of 18 and 70, are , have extremes of body size, muscle mass, or nutritional status, or are non- or non-. According to the National Kidney Foundation, irrespective of diagnosis, the stage of the disease is based on the level of kidney function: Stage Description GFR(mL/min/1.73 m(2)) 1 Kidney damage with normal or decreased GFR 90 2 Kidney damage with mild decrease in GFR 60-89 3 Moderate decrease in GFR 30-59 4 Severe decrease in GFR 15-29 5 Kidney failure <15 (or dialysis) 54 FASTING 10 HOUR 55 Normal Range 180 to 914 Indeterminate Range 145 to 180 Deficient Range <145 56 Normally menstruating females - Follicular phase 3 - 9 - Mid-cycle peak 4 - 23 - Luteal phase 1 - 6 Postmenopausal females 16 - 114 57 Normally menstruating females - Follicular Phase 1 - 18 - Mid-Cycle Peak 24 - 105 - Luteal Phase 0.6 - 20 Postmenopausal females 15 - 62 58 FASTING 10 HOUR 59 Desirable: <150 Borderline High: 150-199 High: 200-499 Very High: >500 60 Desirable: <200 Borderline High: 200-239 High: >239 61 Low: <40 Desirable: 40-60 High: >60 62 Desirable: <100 Near Optimal: 100-129 Borderline High: 130-159 High: 160-189 Very High: >189 63 REFERENCE VALUE Cutoff: 500 64 REFERENCE VALUE Cutoff: 200 65 REFERENCE VALUE Cutoff: 100 66 REFERENCE VALUE Cutoff: 150 67 ADDITIONAL INFORMATION This report is intended for use in clinical monitoring or management of patients. It is not intended for use in employment-related testing. 68 REFERENCE VALUE Cutoff: 200 mg/L 69 Tylenol 3 70 Metabolite of codeine REFERENCE VALUE Cutoff: 100 71 Latasha Hawkins MS Contin; Also a minor metabolite (10%) of codeine and can be seen in low concentrations (<2,000 ng/mL) with poppy seed ingestion. 72 Metabolite of morphine REFERENCE VALUE Cutoff: 100 73 Metabolite of heroin 74 Lortab, [employer], Vicodin; Also a very minor metabolite of codeine and impurity (<1%) of oxycodone. 75 Metabolite of hydrocodone 76 Metabolite of hydrocodone 77 Dilaudid, Exalgo; Also a metabolite of hydrocodone and a minor (<5%) metabolite of morphine. 78 Metabolite of hydromorphone REFERENCE VALUE Cutoff: 100 79 Endocet, Percocet, Oxycontin 80 Metabolite of oxycodone 81 Numorphan, Opana; Also a metabolite of oxycodone. 82 Metabolite of oxymorphone REFERENCE VALUE Cutoff: 100 83 Metabolite of oxymorphone 84 Actiq, Duragesic, Fentora 85 Metabolite of fentanyl 86 Demerol 87 Metabolite of meperidine 88 Narcan 89 Metabolite of naloxone REFERENCE VALUE Cutoff: 100 90 Dolophine 91 Metabolite of methadone 92 Darvon, Darvocet 93 Metabolite of propoxyphene 94 Tradol, Ultram, Ultracet 95 Metabolite of tramadol 96 Nucynta 97 Metabolite of tapentadol 98 Metabolite of tapentadol REFERENCE VALUE Cutoff: 100 99 Buprenex, Suboxone 100 Metabolite of buprenorphine 101 Metabolite of buprenorphine 102 Test detected the presence of buprenorphine and its metabolites (norbuprenorphine and norbuprenorphine glucuronide) along with naloxone metabolites (vilnerll-2-pyax-glucuronide and noroxymorphone/nornaloxone). Suspect use of buprenorphine with naloxone (e.g. Suboxone) within the past three days. ADDITIONAL INFORMATION This test was developed and its performance characteristics determined by [facility] in a manner consistent with CLIA requirements. This test has not been cleared or approved by the U.S. Food and Drug Administration. Test Performed by: [facility] - [address] [address] Procedures Date CPT Code Description Status 06/19/2017 Colonoscopy Completed Encounters Type Date Location Provider CPT E/M Dx Office Visit 05/01/2018 [facility] Internal Medicine Robby Burgos, [address] F11.21 8:30a - Haley Chi,[facility] E28.310 N18.3 A09 Office Visit 02/21/2018 10:00a [facility] Internal Robby Burgos, 05284 F11.21 Medicine - [place] Chi,FACP M54.5 N18.3 I10 Office Visit 01/22/2018 10:20a [facility] Internal Robby Burgos, [address] F11.21 Medicine - [place] Chi,FACP E78.2 I10 M54.5 F17.210 Plan of Care Future Appointment(s):07/12/2018 2:00 pm - Robby Burgos M.D.,FACP at [facility] Internal Medicine - [address]/31/2018 - Robby Burgos M.D.,FACPF11.21 Opioid dependence, in remissionComments:Patient doing well on Suboxone, no major cravings, no relapse on opiates. GRADUATE ASSISTANT ATHLETIC TRAINER reviewed, patient not obtaining opiates through other providers. Continue counseling. UDS up to date. Call us if you need refills.N18.3 Chronic kidney disease, stage 3 (moderate)Comments: Please complete blood tests. Discontinue Naproxen use. You may take Baclofen or Gabapentin for pain management when needed.I10 Essential (primary) hypertensionComments:You are meeting target blood pressure. Continue low salt diet. Continue current medication as directed.Aerobic exercise 30 minutes 5 times per week should improve blood pressure.Goals:Blood pressure goal <140/ 90 in general. Blood pressure goal <150/90 in people older than 75. Blood pressure goal <130/85 in diabetic patients. Goal BMI is less than 25.E28.310 Symptomatic premature menopauseComments:Continue to follow up with Dr. Zaidi regarding this issue.
[2018-06-21 18:38] LABS: ABS Basophils 0.1 10^3/ul (0-0.2); ABS Eosinophils 0.8 10^3/ul (0-0.6); ABS Lymphocytes 3.6 10^3/ul (1.0-4.8); ABS Monocytes 0.5 10^3/ul (0-0.8); ABS Neutrophils 2.7 10^3/ul (1.5-7.7); ABS Nucleated RBC 0 10^3/ul; Hematocrit 38 % (35-47); Lymphocyte % 47.1 % (25-47); Mean Corpuscular HGB Conc 34 g/dl (31-36); Mean Corpuscular Hemoglobin 30 pg (27-31); Mean Corpuscular Volume 88 fL (80-97); Mean Platelet Volume 7.1 um3 (7.4-10.4); Nucleated Red Blood Cells % 0.1; Platelet Count 301 10^3/ul (150-450); Red Blood Count 4.33 10^6/ul (4.00-5.40); Red Cell Distribution Width 15 % (10.5-15); White Blood Count 7.6 10^3/ul (3.5-10.8)
[2018-06-21 18:40] LABS: Urine Appearance Clear; Urine Blood Negative (Negative); Urine Color Straw; Urine Ketones Negative (Negative); Urine Protein Negative (Negative); Urine Specific Gravity 1.002 (1.010-1.030); Urine Urobilinogen Negative (Negative)
[2018-06-21 18:54] LABS: EGFR Non-African American 68.9 (>60)
[2018-06-21] MEDS ORDERED: LORazepam INJ* 2 MG/ML 1 ML VIAL ONE ×2 (19:05→19:25)
[2018-06-21] MEDS ORDERED: Haloperidol INJ IV/IM* 5 MG/ML AMP ONE (19:05)
[2018-06-21] MEDS ORDERED: diPHENhydraMINE PO* 50 MG ONE (19:05)
[2018-06-21] MEDS ORDERED: LORazepam INJ* 2 MG/ML 1 ML VIAL IM ONE (19:24)
--- NOTE | 2018-06-21 20:23 | ED ---
Psychiatric Complaint - HPI Summary HPI Summary: This patient is a 48 year old F presenting to [facility] with a chief complaint of SI since 06/15/18. She claims she drank too much 06/15/18 night, and blacked out. She claims she does not remember saying this, but allegedly she said she to hospital staff that she wanted to hurt herself. She denies current SI, SIB, and HI. Pt eloped from the hospital 06/17/18 and the police were called; they just found her today. PMHx depression, currently in therapy. Rx clonidine and suboxone, hydroxyzine, and gabapentin. PMHx alcohol abuse. - History Of Current Complaint Chief Complaint: EDMentalHealth Time Seen by Provider: 06/21/18 17:56 Hx Obtained From: Patient Onset/Duration: Gradual Onset, Lasting Hours, Resolved - allegedly Timing: Constant Severity Initially: Moderate Severity Currently: None Character: Depressed, Stuporous Aggravating Factor(s): Alcohol Use Alleviating Factor(s): Nothing Associated Signs And Symptoms: Positive: Negative Related History: Positive For: Prior Psychiatric Issues Has Suicidal: Reports: Thoughts - resolved Has Homicidal: Denies: Thoughts - Allergies/Home Medications Allergies/Adverse Reactions: Allergies Allergy/AdvReac Type Severity Reaction Status Date / Time No Known Allergies Allergy Verified 12/10/17 21:04 Home Medications: Home Medications Baclofen TAB* [Lioresal TAB*] 20 mg PO TID 06/21/18 [History Confirmed 06/21/18 ] Pantoprazole TAB (NF) [Protonix TAB (NF)] 40 mg PO DAILY 06/21/18 [History Confirmed 06/21/18] amLODIPine TAB* [Norvasc 5 mg TAB*] 10 mg PO DAILY 06/21/18 [History Confirmed 06/21/18] PMH/Surg Hx/FS Hx/Imm Hx Endocrine/Hematology History: Denies: Hx Sickle Cell Disease Cardiovascular History: Reports: Hx Hypertension Sensory History: Denies: Hx Legally Blind, Hx Deafness Opthamlomology History: Denies: Hx Legally Blind EENT History: Denies: Hx Deafness Neurological History: Reports: Hx Seizures Psychiatric History: Reports: Hx Depression, Hx Substance Abuse - Surgical History Surgery Procedure, Year, and Place: NONE Infectious Disease History: No Infectious Disease History: Denies: Traveled Outside the [place] in Last 30 Days - Family History Known Family History: Positive: Hypertension Negative: Renal Disease - Social History Lives: Alone Alcohol Use: Occasionally Hx Substance Use: Yes - 20 years ago Substance Use Type: Reports: None Substance Use Comment - Amount & Last Used: unk Hx Tobacco Use: Yes Smoking Status (MU): Heavy Every Day Tobacco Smoker Have You Smoked in the Last Year: Yes Review of Systems Negative: Fever Positive: no symptoms reported Positive: Other - SI (resolved) All Other Systems Reviewed And Are Negative: Yes Physical Exam - Summary Physical Exam Summary: VITAL SIGNS: Reviewed. GENERAL: Patient is a well-developed and nourished female who is lying comfortable in the stretcher. Patient is not in any acute respiratory distress. HEAD AND FACE: No signs of trauma. No ecchymosis, hematomas or skull depressions. No sinus tenderness. EYES: PERRLA, EOMI x 2, No injected conjunctiva, no nystagmus. EARS: Hearing grossly intact. Ear canals and tympanic membranes are within normal limits. MOUTH: Oropharynx within normal limits. NECK: Supple, trachea is midline, no adenopathy, no JVD, no carotid bruit, no c- spine tenderness, neck with full ROM. CHEST: Symmetric, no tenderness at palpation LUNGS: Clear to auscultation bilaterally. No wheezing or crackles. CVS: Regular rate and rhythm, S1 and S2 present, no murmurs or gallops appreciated. ABDOMEN: Soft, non-tender. No signs of distention. No rebound no guarding, and no masses palpated. Bowel sounds are normal. EXTREMITIES: FROM in all major joints, no edema, no cyanosis or clubbing. NEURO: Alert and oriented x 3. No acute neurological deficits. Speech is normal and follows commands. SKIN: Dry and warm Triage Information Reviewed: Yes Vital Signs On Initial Exam: Initial Vitals Temp Pulse Resp BP Pulse Ox 98.9 F 68 16 148/97 97 06/21/18 17:50 06/21/18 17:50 06/21/18 17:50 06/21/18 17:50 06/21/18 17:50 Vital Signs Reviewed: Yes Diagnostics - Vital Signs Vital Signs Temp Pulse Resp BP Pulse Ox 06/21/18 19:28 20 06/21/18 17:50 98.9 F 68 16 148/97 97 - Laboratory Lab Results: Lab Results 06/21/18 06/21/18 06/21/18 Range/Units 18:26 18:26 18:27 WBC 7.6 (3.5-10.8) 10^3/ul RBC 4.33 (4.00-5.40) 10^6/ul Hgb 13.0 (12.0-16.0) g/dl Hct 38 (35-47) % MCV 88 (80-97) fL MCH 30 (27-31) pg MCHC 34 (31-36) g/dl RDW 15 (10.5-15) % Plt Count 301 (150-450) 10^3/ul MPV 7.1 L (7.4-10.4) um3 Neut % (Auto) 35.1 L (38-83) % Lymph % (Auto) 47.1 H (25-47) % [place] % (Auto) 7.0 (0-7) % Eos % (Auto) 10.0 H (0-6) % Baso % (Auto) 0.8 (0-2) % Absolute Neuts (auto) 2.7 (1.5-7.7) 10^3/ul Absolute Lymphs (auto) 3.6 (1.0-4.8) 10^3/ul Absolute Monos (auto) 0.5 (0-0.8) 10^3/ul Absolute Eos (auto) 0.8 H (0-0.6) 10^3/ul Absolute Basos (auto) 0.1 (0-0.2) 10^3/ul Absolute Nucleated RBC 0 10^3/ul Nucleated RBC % 0.1 Sodium 145 (135-145) mmol/L Potassium 3.4 L (3.5-5.0) mmol/L Chloride 109 (101-111) mmol/L Carbon Dioxide 27 (22-32) mmol/L Anion Gap 9 (2-11) mmol/L BUN 11 (6-24) mg/dL Creatinine 0.88 (0.51-0.95) mg/dL Est GFR ( Amer) 83.3 (>60) Est GFR (Non-Af Amer) 68.9 (>60) BUN/Creatinine Ratio 12.5 (8-20) Glucose 95 (70-100) mg/dL Calcium 8.9 (8.6-10.3) mg/dL Total Bilirubin 0.30 (0.2-1.0) mg/dL AST 18 (13-39) U/L ALT 10 (7-52) U/L Alkaline Phosphatase 120 H (34-104) U/L Total Protein 7.0 (6.4-8.9) g/dL Albumin 4.1 (3.2-5.2) g/dL Globulin 2.9 (2-4) g/dL Albumin/Globulin Ratio 1.4 (1-3) TSH 0.92 (0.34-5.60) mcIU/mL Urine Color Straw Urine Appearance Clear Urine pH 6.0 (5-9) Ur Specific [place] 1.002 L (1.010-1.030) Urine Protein Negative (Negative) Urine Ketones Negative (Negative) Urine Blood Negative (Negative) Urine Nitrate Negative (Negative) Urine Bilirubin Negative (Negative) Urine Urobilinogen Negative (Negative) Ur Leukocyte Esterase Negative (Negative) Urine Glucose Negative (Negative) Salicylates < 2.50 (<30) mg/dL Acetaminophen < 15 mcg/mL Serum Alcohol 218 H (<10) mg/dL Result Diagrams: 06/21/18 18:26 06/21/18 18:26 Lab Statement: Any lab studies that have been ordered have been reviewed, and results considered in the medical decision making process. Course/Dx - Course Course Of Treatment: This patient is a 48-year-old female who presents to the emergency department escorted by ambulance and policewoman stating that the patient eloped from [facility] after she she having suicidal ideations. The patient reports that she was with alcohol intoxication last Monday and she doesnt remember saying anything. However right now the patient denies any suicidal or homicidal ideation. Blood work w/o a significant abnormality. She is medically cleared. She is awaiting for a MHE. While she was waiting for mental health ablation the patient became very agitated aggressive and she tried to elop. Because of safety concerns for herself and others the patient was given Benadryl, Haldol and Ativan. She had chemical restraints as well as extremity restraints. At this time the patient is resting comfortable. The patient is one-to-one. 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 Patient is awaiting to be clear for mental health ablation. Patient will be signed out to Dr. Bronson at shift change. - Differential Dx/Clinical Impression Differential Diagnosis/HQI/PQRI: Positive: Anxiety, Depression, Homicidal Ideation, Suicidal Ideation Provider Diagnosis: Suicidal ideation, Depression, Agitation Discharge - Sign-Out/Discharge Documenting (check all that apply): Sign-Out Patient Signing out patient TO: Usama Wise - - Discharge Plan Disposition: HOME Referrals: Robby Burgos MD [Primary Care Provider] - - Attestation Statements Document Initiated by Nikole: Yes Documenting Scribe: Ervin Gallegos Provider For Whom Nikole is Documenting (Include Credential): Dr. Luke Raygoza MD Scribe Attestation: Ervin Montana scribed for Dr. Luke Raygoza MD on 06/22/18 at 1546. Scribe Documentation Reviewed: Yes Provider Attestation: The documentation as recorded by the Ervin camarillo accurately reflects the service I personally performed and the decisions made by me, Dr. Luke Raygoza MD
[2018-06-21] MEDS ORDERED: Potassium Chlor TAB* 20 MEQ TAB.ER PO ONE (20:35)
--- NOTE | 2018-06-22 03:25 | ED ---
Progress - Progress Note Progress Note: This pt was signed out by Dr. Raygoza, pending disposition, awaiting medical clearance and a MHE. Pt is still pending medical clearance and subsequent MHE. Pt will be signed out to Dr. Enciso. Course/Dx - Diagnoses Provider Diagnoses: Suicidal ideation, Depression, Agitation Discharge - Sign-Out/Discharge Documenting (check all that apply): Sign-Out Patient, Receiving Sign-Out Signing out patient TO: Nick Enciso Receiving patient FROM: Luke Raygoza - Discharge Plan Referrals: Robby Burgos MD [Primary Care Provider] - - Attestation Statements Document Initiated by Scribe: Yes Documenting Scribe: Alejandra English Provider For Whom Scribe is Documenting (Include Credential): Usama Wise MD Scribe Attestation: Alejandra Montana, scribed for Usama Wise MD on 06/22/18 at 0630.
[2018-06-22] MEDS ORDERED: Baclofen TAB* 20 MG PO PRN (08:18)
[2018-06-22] MEDS ORDERED: Lisinopril TAB* 10 MG PO ONE (08:23)
[2018-06-22] MEDS ORDERED: Omeprazole CAP* 20 MG PO ONE (08:26)
[2018-06-22] MEDS ORDERED: Baclofen TAB* 10 MG ONE (08:35)
[2018-06-22] MEDS ORDERED: Baclofen TAB* 10 MG PO ONE (08:41)
[2018-06-22] MEDS ORDERED: cloNIDine TAB* 0.1 MG PO SCH (09:00)
[2018-06-22] MEDS ORDERED: Hydrochlorothiazide TAB* 25 MG PO SCH (09:00)
[2018-06-22] MEDS ORDERED: Gabapentin CAP(*) 300 MG PO SCH (09:00)
[2018-06-22] MEDS ORDERED: Buprenorphine/Naloxone 8-2 MG SL TAB* 1 TAB PO SCH (09:00)
[2018-06-22] MEDS ORDERED: amLODIPine TAB* 5 MG PO SCH (09:00)
[2018-06-22] MEDS ORDERED: Nicotine PATCH 14 MG/24 HR* PATCH TRANSDERM SCH (09:07)
[2018-06-22 11:41] VITALS: BP 140/105
--- NOTE | 2018-06-22 13:08 | PN ---
Progress Note - Progress Note Date of Service: 06/22/18 Note: SIGN-OUT TO DR. ENCISO FROM DR. HANKINS AT SHIFT CHANGE PENDING MHE. Per counselor: Pt will be discharged home with Dx: ETOH induced mood disorder. DX: ETOH-induced mood disorder DISPO: D/C, stable, home This is Guzman camarillo, documenting for attending Dr. Nick Enciso MD.
--- NOTE | 2018-06-22 18:25 | PN ---
ED Flex Patient Progress Note Subjective: This is a 48 year-old F who is pending psychiatric evaluation secondary to . Pt offers no complaints at this time. Would like her routine meds which we reviewed together. Objective: Vitals: Most recent vital signs documented below. General NAD, Alert and oriented x3. Heart: rrr, S1/S2 Lungs: CTA, BREATHING EASILY INTEG: skin warm, dry and well perfused PSYCH: cooperative, calm; has guarded body language (arms crossed over ab) Laboratory: Current laboratory results documented below. Assessment: 1) MH 2) HTN 3) GERD 4) Opiate dependence 5) chronic back pain Plan: 1) Pending psychiatric eval. Will follow up daily __while in ED___. 2) 3) 4) 5) Vital Signs Temp Pulse Resp BP Pulse Ox 98.9 F 87 16 140/105 98 06/21/18 17:50 06/22/18 08:00 06/22/18 11:00 06/22/18 07:31 06/22/18 08:00 Lab Results - Entire Visit 06/21/18 06/21/18 06/21/18 18:27 18:26 18:26 WBC 7.6 RBC 4.33 Hgb 13.0 Hct 38 MCV 88 MCH 30 MCHC 34 RDW 15 Plt Count 301 MPV 7.1 L Neut % (Auto) 35.1 L Lymph % (Auto) 47.1 H [place] % (Auto) 7.0 Eos % (Auto) 10.0 H Baso % (Auto) 0.8 Absolute Neuts (auto) 2.7 Absolute Lymphs (auto) 3.6 Absolute Monos (auto) 0.5 Absolute Eos (auto) 0.8 H Absolute Basos (auto) 0.1 Absolute Nucleated RBC 0 Nucleated RBC % 0.1 Sodium 145 Potassium 3.4 L Chloride 109 Carbon Dioxide 27 Anion Gap 9 BUN 11 Creatinine 0.88 Est GFR ( Amer) 83.3 Est GFR (Non-Af Amer) 68.9 BUN/Creatinine Ratio 12.5 Glucose 95 Calcium 8.9 Magnesium 2.2 Total Bilirubin 0.30 AST 18 ALT 10 Alkaline Phosphatase 120 H Total Protein 7.0 Albumin 4.1 Globulin 2.9 Albumin/Globulin Ratio 1.4 TSH 0.92 Urine Color Straw Urine Appearance Clear Urine pH 6.0 Ur Specific [place] 1.002 L Urine Protein Negative Urine Ketones Negative Urine Blood Negative Urine Nitrate Negative Urine Bilirubin Negative Urine Urobilinogen Negative Ur Leukocyte Esterase Negative Urine Glucose Negative Salicylates < 2.50 Acetaminophen < 15 Serum Alcohol 218 H
[2018-06-22] MEDS ORDERED: Nicotine Patch Removal NOTE PATCH OFF SCH (21:00)
== END 2018-06-22 15:25 | disposition home or self-care (01) ==
LOC: ED 17:35
DX: R45.851 Suicidal ideations (principal); F32.9 Major depressive disorder, single episode, unspecified; R45.1 Restlessness and agitation
CPT/HCPCS: 36415; 80053; 80320; 80329; 81003; 83735; 84443; 85025; 96374; 96375; 99285; A9270-GY; G0480; J1630; J2060